=== PATIENT | female | born 1975 | race Caucasian/White ===

== ENCOUNTER 2018-05-05 12:15 | Emergency (ER) | payer BC ==
--- NOTE | 2018-05-05 13:56 | RAD ---
PA AND LATERAL VIEWS CHEST: Date: 05/05/18 HISTORY: Cough. FINDINGS: The heart size is normal. The lungs are expanded without focal areas of consolidation, pneumothoraces , or pleural effusions. No acute osseous abnormalities are seen. IMPRESSION: No radiographic evidence of acute cardiopulmonary process. POS: [facility]
== END 2018-05-05 13:48 | disposition home or self-care (01) ==
LOC: MADERS 12:15
DX: R05 Cough (principal); I10 Essential (primary) hypertension; Z79.899 Other long term (current) drug therapy
CPT/HCPCS: 71046